=== PATIENT | male | born 1975 | race Caucasian/White ===

== ENCOUNTER 2021-03-03 16:21 | Emergency (ER) | payer MEDICAID ==
[~2021-03-03] VITALS: Ht 185.4 cm; Wt 92.1 kg
[2021-03-03 17:04] VITALS: BP 152/78
[2021-03-03] MEDS ORDERED: CEPHALEXIN MONOHYDRATE 500 MG CAPSULE PO ONE ×2 (18:00→18:01)
[2021-03-03] MEDS ORDERED: IBUPROFEN 600 MG TABLET PO ONE (18:00)
[2021-03-03] MEDS ORDERED: SULFAMETH/TRIMETH 800/160 MG 1 UDTAB TABLET PO ONE (18:00)
[2021-03-03] MEDS ORDERED: SULFAMETH/TRIMETH 800/160 MG 1 UDTAB TABLET ONE (18:01)
[2021-03-03] MEDS ORDERED: IBUPROFEN 600 MG TABLET ONE (18:01)
[2021-03-03] MEDS ORDERED: SULF-10 PO (19:49)
[2021-03-03] MEDS ORDERED: CEPH500C2 PO (19:49)
[2021-03-03] MEDS ORDERED: [UNRECOGNIZED DRUG - CODE] PO (19:49)
== END 2021-03-03 19:56 | disposition home or self-care (01) ==
LOC: ER 16:24
DX: S90.511A Abrasion, right ankle, initial encounter (principal); S90.512A Abrasion, left ankle, initial encounter; S87.81XA Crushing injury of right lower leg, initial encounter; L03.115 Cellulitis of right lower limb; I10 Essential (primary) hypertension; V23.4XXA Motorcycle driver injured in collision with car, pick-up truck or van in traffic accident, initial encounter; Y93.55 Activity, bike riding; Y92.89 Other specified places as the place of occurrence of the external cause; Y99.8 Other external cause status
CPT/HCPCS: 73610-TC